=== PATIENT | female | born 1965 | race American Indian/Alaskan Native ===

== ENCOUNTER 2019-05-03 08:08 | Day surgery (SDC) | payer OTHER ==
[~2019-05-03 08:08] MED LIST: NACL 0.9% 1000 ML 1,000 ML IV SCH
--- NOTE | 2019-05-03 09:25 | Anesthesia Day of Surgery ---
Anesthesia Day of Surgery - Day of Surgery Patient Examined: Yes Patient H&P Reviewed: Yes Patient is NPO: Yes
--- NOTE | 2019-05-03 09:25 | Anesthesia Consultation ---
Anesthesia Consult and Med Hx Date of service: 05/03/19 - Airway Anesthetic Teeth Evaluation: Good ROM Head & Neck: Adequate Mental/Hyoid Distance: Adequate Mallampati Class: Class II Intubation Access Assessment: Probably Good - Pre-Operative Health Status ASA Pre-Surgery Classification: ASA2 Proposed Anesthetic Plan: MAC - Gastrointestinal Hx Gastroesophageal Reflux Disease: Yes
[2019-05-03] MEDS ORDERED: DIPRIVAN 10 MG/ML IV ONE ×2 (11:02)
--- NOTE | 2019-05-03 11:59 | Procedure Note ---
Date of procedure: 05/03/19 Pre-op diagnosis: GERD/ Colon Polyp Screening Post-op diagnosis: other (Moderate,Erosive Esophagitis/Gastritis/Moderate,Hiatal Hernia/ No Colon Polyps noted/ Cecal lipoma (biopsy done)/ No Diverticular Disease/Minor,Internal Hemorrhoid) Procedure: EGD with Biopsy and Colonoscopy with Biopsy Anesthesia: ANTON Surgeon: MATTHEW ERWIN Estimated blood loss: minimal Pathology: list Specimen disposition: to lab Condition: stable Disposition: same day (Treat with PPI. Avoid aspirin,NSAID and anticoagulants for 4 days, otherwise home medication. Follow up in 1 to 2 weeks ([phone]).)
[2019-05-03 12:17] VITALS: BP 125/71
[2019-05-03] MEDS ORDERED: NACL 0.9% 1000 ML 1,000 ML ONE (13:19)
--- NOTE | 2019-05-03 14:22 | Operative Report ---
PROCEDURE: Esophagogastroduodenoscopy with biopsy. INDICATIONS: The patient is a 53-year-old -[place] female who has been having GERD symptoms. EGD was done to assess for any associated esophagitis and gastritis or peptic ulcer disease. PROCEDURE: Procedure was done after getting informed consent with MAC anesthesia. Instrument was passed through the hypopharynx into the esophagus, which showed a moderate distal erosive esophagitis. Photodocumentation was obtained from the distal esophagus. Stomach showed a moderate hiatal hernia on the retroverted view. There was some antral gastritis present, but no ulcers were noted in the straight or the retroverted view. Biopsy was done from the gastric antrum, gastric body and angular incisura to rule out for H. pylori and atrophic gastritis. There was minimal bleeding from the biopsy sites and no complications associated with the procedure. Pylorus was patent. Duodenum in the first and second portion appeared normal. ASSESSMENT: Gastroesophageal reflux disease symptoms, moderate distal erosive esophagitis, moderate hiatal hernia, gastritis. No peptic ulcer disease noted. PLAN: To treat the patient with PPI, have the patient to avoid aspirin and aspirin-related products for the next few days, to do a colonoscopy as part of colon polyp screening and to have the patient advised to avoid aspirin and aspirin-related products for the next few days and treat the patient with PPI. The procedure was done in the GI lab with assistance of the GI lab team, which included SANJUANA Gutierrez as well as Aidan noble and with the assistance of anesthesia. JOB# [id number] GINNY/JU
--- NOTE | 2019-05-03 14:31 | Operative Report ---
PROCEDURE: Colonoscopy with biopsy. INDICATIONS: This is a 53-year-old -[place] female who does have a family history of cancer. Colonoscopy was done as part of colon polyp screening. DESCRIPTION OF PROCEDURE: Procedure was done after getting informed consent with MAC anesthesia. Initial rectal exam was unremarkable. Instrument was passed through the rectum onto the cecum, which was identified by the ileocecal valve and the appendiceal orifice. Visualization was fair to good. There was a lipoma that was noted in the cecum. Photodocumentation and biopsy was obtained. The remaining part of the cecum and ascending colon showed normal mucosa. Transverse colon likewise showed normal mucosa as did the left colon. There was no diverticular disease noted other than for the lipoma. No other polyps noted and the rectum showed minor internal hemorrhoids on the retroverted view. There was minimal bleeding from the biopsy sites. No complications associated with the procedure. ASSESSMENT: Colon polyp screening, no colon polyps noted, cecal lipoma. Biopsy done. No diverticular disease. Minor internal hemorrhoid. PLAN: To treat the patient with PPI because of the EGD findings of moderate erosive esophagitis and gastritis. Advised about lifestyle changes to minimize the symptoms associated with moderate hiatal hernia and further treatment adjustments will be made as per the biopsy findings. The patient will be asked to follow up in the office in 1-2 weeks' time and to avoid aspirin and aspirin-related products and anticoagulants for the next 4 days. The procedure was done in the GI lab with the assistance of the GI lab team, which included Shreya WEI as well as Aidan noble and the assistance of anesthesia. JOB# [id number] GINNY/JU
== END 2019-05-03 12:40 | disposition home or self-care (01) ==
LOC: GIO 08:08
DX: D12.0 Benign neoplasm of cecum (principal); K29.50 Unspecified chronic gastritis without bleeding; K21.0 Gastro-esophageal reflux disease with esophagitis; K64.8 Other hemorrhoids; K44.9 Diaphragmatic hernia without obstruction or gangrene; G43.909 Migraine, unspecified, not intractable, without status migrainosus; G47.30 Sleep apnea, unspecified; M79.7 Fibromyalgia; D64.9 Anemia, unspecified; Z86.010 Personal history of colon polyps; Z90.710 Acquired absence of both cervix and uterus; Z98.891 History of uterine scar from previous surgery; Z98.890 Other specified postprocedural states; Z88.2 Allergy status to sulfonamides
CPT/HCPCS: 43239; 45380; 88305; 88342; J2704; J7030